=== PATIENT | female | born 1980 | race Asian ===

== ENCOUNTER → 2017-02-21 | Outpatient (CLI) | payer BC ==
[~2017-02-21] MED LIST: IRON PO; MULT-516 PO; PREN1TAB10 PO; RANI300C PO
== END ==
LOC: STAR 08:26
PROVIDERS: ATTEND Specialist
DX: Z02.9 Encounter for administrative examinations, unspecified (principal)

== ENCOUNTER 2017-03-08 09:57 | Day surgery (SDC) | payer BC ==
[~2017-03-08] VITALS: Ht 160 cm; Wt 59.9 kg
[2017-03-08] MEDS ORDERED: MIDAZOLAM 1 MG/ML, 2ML ONE (10:37)
[2017-03-08] MEDS ORDERED: FENTANYL PF 250 MCG/5ML ONE (10:37)
[2017-03-08] MEDS ORDERED: LACTATED RINGERS 1,000 ML IV SCH (10:39)
[2017-03-08 10:42] VITALS: BP 116/64
[2017-03-08] MEDS ORDERED: SCOPOLAMINE PATCH, 1.5MG PATCH.TD72 TD ONE ×2 (10:47→11:40)
[2017-03-08 11:16] LABS: HCG UR SG 1.021 (1.003-1.030)
[2017-03-08] MEDS ORDERED: EPINEPHRINE 1 MG/ML, 1ML ONE (11:41)
[2017-03-08] MEDS ORDERED: BUPIVACAINE/PF 0.25% ONE (11:41)
[2017-03-08] MEDS ORDERED: KETAMINE 10 MG/ML, 20ML ONE (12:11)
[2017-03-08] MEDS ORDERED: INDIGO CARMINE 0.8%, 5ML ONE (12:45)
[2017-03-08] MEDS ORDERED: MIDAZOLAM 1 MG/ML, 2ML IV PRN (13:00)
[2017-03-08] MEDS ORDERED: PROMETHAZINE 25 MG/ML, 1ML IV PRN (13:00)
[2017-03-08] MEDS ORDERED: MEPERIDINE/PF 25MG/0.5ML IVPush PRN (13:00)
[2017-03-08] MEDS ORDERED: HYDROmorphone 1 MG/ML, 1ML IV PRN (13:00)
[2017-03-08] MEDS ORDERED: ACETAMINOPHEN 325 MG TABLET PO PRN (13:00)
[2017-03-08] MEDS ORDERED: OXYcodone 5 MG/5 ML ORAL.SOL UDC PO PRN (13:00)
[2017-03-08] MEDS ORDERED: FENTANYL PF 100 MCG/2ML IV PRN (13:00)
[2017-03-08] MEDS ORDERED: MEPERIDINE/PF 50 MG/ML ONE (13:55)
[2017-03-08] MEDS ORDERED: CEFAZOLIN 1,000 MG ONE (15:53)
[2017-03-08] MEDS ORDERED: GLYCOPYRROLATE 0.2MG/1ML, 5ML ONE (15:53)
[2017-03-08] MEDS ORDERED: DEXAMETHASONE 4 MG/ML, 1ML ONE (15:53)
[2017-03-08] MEDS ORDERED: PROPOFOL 10 MG/ML, 20ML ONE (15:53)
[2017-03-08] MEDS ORDERED: KETOROLAC 30 MG/1 ML ONE (15:53)
[2017-03-08] MEDS ORDERED: ONDANSETRON 2MG/ML, 2ML ONE (15:53)
[2017-03-08] MEDS ORDERED: ROCURONIUM 10 MG/ML,10ML ONE (15:53)
[2017-03-08] MEDS ORDERED: NEOSTIGMINE 1 MG/ML, 10ML ONE (15:53)
== END 2017-03-08 16:40 ==
LOC: OUT 09:57
PROVIDERS: ATTEND Specialist
DX: N84.0 Polyp of corpus uteri (principal); N80.0 Endometriosis of uterus; N73.6 Female pelvic peritoneal adhesions (postinfective)
CPT/HCPCS: 49320; 58558; 81025; 88305; J0171; J0690; J1100; J1885; J2175; J2250; J2405; J2704; J2710; J3010; J3490; J7120